=== PATIENT | male | born 1940 | race Caucasian/White ===

== ENCOUNTER 2017-11-07 14:05 | Observation (INO) ==
[2017-11-07] MEDS ORDERED: DOCUSATE SODIUM 100 MG CAPSULE PO PRN (14:38)
[2017-11-07] MEDS ORDERED: ZALEPLON 5 MG CAPSULE PO PRN (14:38)
[2017-11-07] MEDS ORDERED: ACETAMINOPHEN 325 MG TABLET PO PRN (14:38)
[2017-11-07] MEDS ORDERED: MAGNESIUM SULF RIDER 2 GM in PREMIX 1 EACH IV PRN (14:38)
[2017-11-07] MEDS ORDERED: MAGNESIUM SULF RIDER 4 GM in PREMIX 1 EACH IV PRN (14:38)
[2017-11-07] MEDS ORDERED: ONDANSETRON 4 MG/2 ML VIAL IV PRN (14:38)
[2017-11-07] MEDS ORDERED: MECLIZINE 25 MG TABLET PO PRN (14:42)
[2017-11-07] MEDS ORDERED: NITROGLYCERIN SL 0.4 MG TABLET SL PRN (14:44)
[2017-11-07] MEDS ORDERED: LOPERAMIDE 2 MG CAPSULE PO PRN (14:50)
[2017-11-07] MEDS ORDERED: SIMVASTATIN 40 MG TABLET PO SCH (21:00)
[2017-11-07] MEDS: ENOXAPARIN 30 MG/0.3 ML SYRINGE SUBCUT SCH (21:45)
[2017-11-07] MEDS: CALCIUM (CARBONATE)/VITAMIN D 600 MG-400 UNIT TABLET PO SCH (21:45)
[2017-11-07] MEDS: ATORVASTATIN 40 MG TABLET PO SCH (21:45)
[2017-11-07] MEDS: METOPROLOL TARTRATE 25 MG TABLET PO SCH (21:45)
[2017-11-07] MEDS: FLUTICASONE 50 MCG NASAL SPRAY 16 GM BOTTLE BOTH NARES SCH (21:45)
[2017-11-07] MEDS: busPIRone 5 MG TABLET PO SCH (21:45)
[2017-11-08 05:22] LABS: Basophils % 0.2 % (0.0-0.8); Eosinophils % 0.2 % (0.00-10.9); Hematocrit 25.5 VOL% (42.0-52.0); Hemoglobin 8.6 GM/DL (14.0-18.0); Immature Granulocytes % 0.4 %; Immature Granulocytes Absolute 0.02 #; Lymphocytes # 1.8 10*3/uL (1.4-4.0); Lymphocytes % 34.4 % (21.2-54.2); Mean Corpuscular HGB Conc 33.7 GM/DL (32-36); Mean Corpuscular Hemoglobin 31 PG (27-34); Mean Corpuscular Volume 90.7 FL (87-102); Mean Platelet Volume 9.2 FL (9.6-12.0); Monocytes # 0.3 10*3/uL (0.11-0.8); Monocytes % 6.5 % (1.7-12.7); Neutrophils % 58.3 % (38.7-73.9); Platelet Count 208 T/CUMM (130-400); Red Blood Count 2.81 MC/CUMM (3.8-5.5); Red Cell Distribution Width 13.2 % (9.3-17.3); White Blood Count 5.1 T/CUMM (4-12)
[2017-11-08 05:46] LABS: Calcium 8.8 MG/DL (8.5-10.1); Osmolality,Calculated 290.3 MOS/KG (273-304); Potassium 4.5 MMOL/L (3.5-5.1)
[2017-11-08] MEDS: ESCITALOPRAM 10 MG TABLET PO SCH (09:06)
[2017-11-08] MEDS: PANTOPRAZOLE 40 MG TABLET PO SCH (09:06)
[2017-11-08] MEDS: DONEPEZIL 10 MG TABLET PO SCH (09:06)
[2017-11-08] MEDS: amLODIPine 10 MG TABLET PO SCH (09:06)
[2017-11-08] MEDS: CLOPIDOGREL 75 MG TABLET PO SCH (09:06)
[2017-11-08] MEDS: ASPIRIN EC 81 MG TABLET PO SCH (09:06)
[2017-11-08] MEDS: busPIRone 5 MG TABLET PO SCH ×2 (09:06→22:00)
[2017-11-08] MEDS: CALCIUM (CARBONATE)/VITAMIN D 600 MG-400 UNIT TABLET PO SCH ×2 (09:06→22:00)
[2017-11-08] MEDS: CETIRIZINE 10 MG TABLET PO SCH (09:06)
[2017-11-08] MEDS: METOPROLOL TARTRATE 25 MG TABLET PO SCH ×2 (09:06→22:00)
[2017-11-08] MEDS: FLUTICASONE 50 MCG NASAL SPRAY 16 GM BOTTLE BOTH NARES SCH ×2 (09:07→22:01)
[2017-11-08] MEDS ORDERED: MECLIZINE 25 MG TABLET PO PRN (14:30)
[2017-11-08] MEDS: ENOXAPARIN 30 MG/0.3 ML SYRINGE SUBCUT SCH (22:00)
[2017-11-08] MEDS: ATORVASTATIN 40 MG TABLET PO SCH (22:00)
[2017-11-09 05:03] LABS: Basophils % 0.4 % (0.0-0.8); Hematocrit 25.4 VOL% (42.0-52.0); Hemoglobin 8.4 GM/DL (14.0-18.0); Immature Granulocytes % 0.4 %; Immature Granulocytes Absolute 0.02 #; Lymphocytes # 2.1 10*3/uL (1.4-4.0); Lymphocytes % 42.3 % (21.2-54.2); Mean Corpuscular HGB Conc 33.1 GM/DL (32-36); Mean Corpuscular Hemoglobin 31 PG (27-34); Mean Corpuscular Volume 92.7 FL (87-102); Mean Platelet Volume 9.3 FL (9.6-12.0); Monocytes # 0.3 10*3/uL (0.11-0.8); Monocytes % 6.6 % (1.7-12.7); Neutrophils # 2.4 10*3/uL (1.4-7.4); Neutrophils % 50.3 % (38.7-73.9); Platelet Count 200 T/CUMM (130-400); Red Blood Count 2.74 MC/CUMM (3.8-5.5); Red Cell Distribution Width 13.2 % (9.3-17.3); White Blood Count 4.9 T/CUMM (4-12)
[2017-11-09 05:55] LABS: Calcium 8.5 MG/DL (8.5-10.1); Osmolality,Calculated 290.3 MOS/KG (273-304); Potassium 4.2 MMOL/L (3.5-5.1)
[2017-11-09] MEDS: CALCIUM (CARBONATE)/VITAMIN D 600 MG-400 UNIT TABLET PO SCH (09:08)
[2017-11-09] MEDS: busPIRone 5 MG TABLET PO SCH (09:09)
[2017-11-09] MEDS: amLODIPine 10 MG TABLET PO SCH (09:09)
[2017-11-09] MEDS: CETIRIZINE 10 MG TABLET PO SCH (09:09)
[2017-11-09] MEDS: CLOPIDOGREL 75 MG TABLET PO SCH (09:10)
[2017-11-09] MEDS: PANTOPRAZOLE 40 MG TABLET PO SCH (09:10)
[2017-11-09] MEDS: ESCITALOPRAM 10 MG TABLET PO SCH (09:10)
[2017-11-09] MEDS: METOPROLOL TARTRATE 25 MG TABLET PO SCH (09:11)
[2017-11-09] MEDS: FLUTICASONE 50 MCG NASAL SPRAY 16 GM BOTTLE BOTH NARES SCH (09:11)
[2017-11-09] MEDS: ASPIRIN EC 81 MG TABLET PO SCH (09:14)
[2017-11-09] MEDS: DONEPEZIL 10 MG TABLET PO SCH (09:18)
[2017-11-09 12:37] VITALS: BP 123/58
== END 2017-11-09 13:05 ==
LOC: EDBD → EDUNIT# → N.ED 14:05 → N.EDINP 14:05 → N.TELES 16:12
PROVIDERS: ADMIT Internal Medicine Cardiovascular Disease; ATTEND Internal Medicine Cardiovascular Disease

== ENCOUNTER 2018-01-10 00:35 | Inpatient (IN) ==
[2018-01-10] MEDS ORDERED: ONDANSETRON 4 MG/2 ML VIAL IV STA (01:00)
[2018-01-10] MEDS ORDERED: METOCLOPRAMIDE 10 MG/2 ML VIAL IV STA (01:00)
[2018-01-10] MEDS ORDERED: PANTOPRAZOLE 40 MG VIAL IV STA (01:00)
[2018-01-10] MEDS ORDERED: SODIUM CHLORIDE 0.9% 1,000 ML IV STA (01:00)
[2018-01-10 01:48] LABS: Basophils % 0.2 % (0.0-0.8); Eosinophils % 0.2 % (0.00-10.9); Hematocrit 23.1 VOL% (42.0-52.0); Hemoglobin 7.2 GM/DL (14.0-18.0); Immature Granulocytes % 0.4 %; Immature Granulocytes Absolute 0.02 #; Lymphocytes # 1.5 10*3/uL (1.4-4.0); Lymphocytes % 33.9 % (21.2-54.2); Mean Corpuscular HGB Conc 31.2 GM/DL (32-36); Mean Corpuscular Hemoglobin 29 PG (27-34); Mean Platelet Volume 9.1 FL (9.6-12.0); Monocytes # 0.3 10*3/uL (0.11-0.8); Neutrophils # 2.6 10*3/uL (1.4-7.4); Neutrophils % 58.3 % (38.7-73.9); Platelet Count 186 T/CUMM (130-400); Red Blood Count 2.51 MC/CUMM (3.8-5.5); Red Cell Distribution Width 14.2 % (9.3-17.3); White Blood Count 4.5 T/CUMM (4-12)
[2018-01-10 01:59] LABS: PT Patient Result 10.7 SECS; Partial Thromboplastin Time 27.4 SECS (0-40)
[2018-01-10 02:08] LABS: Alanine Aminotransferase 15 U/L (16-61); Albumin 3.2 G/DL (3.4-5.0); Alkaline Phosphatase 86 U/L (45-117); Aspartate Amino Transferase 12 U/L (0-37); Bilirubin,Total < 0.39 MG/DL (0.2-1.0); Blood Urea Nitrogen 26 MG/DL (7-18); Calcium 8.2 MG/DL (8.5-10.1); Glucose 97 MG/DL (74-106); Osmolality,Calculated 290.8 MOS/KG (273-304); Potassium 3.8 MMOL/L (3.5-5.1); Sodium 144 MMOL/L (136-145); Total Protein 6.2 G/DL (6.4-8.3); Troponin I Only < 0.015 NG/ML (0.00-0.045)
[2018-01-10 04:31] LABS: Apearance,Urine CLEAR (Clear); Bilirubin,Urine Negative (Negative); Blood, Urine Negative (Negative); Glucose,Urine (UA) Negative (Negative); Ketones,Urine Negative (Negative); Mucus,Urine Occasional /LPF (Occasional); Nitrite,Urine Negative (Negative); Protein,Urine Negative; RBC,Urine <1 /HPF (0-4); Squamous Epithelial Cell,Urine Occasional /HPF (0-10); Urine Color Yellow (Yellow); Urine Specific Gravity 1.009 (1.001-1.035); Urine Urobilinogen < 2.0 EU/DL (0.2-1.0); WBC,Urine <1 /HPF (0-6)
[2018-01-10] MEDS ORDERED: ONDANSETRON 4 MG/2 ML VIAL IV PRN (05:40)
[2018-01-10] MEDS ORDERED: SODIUM CHLORIDE 0.9% 1,000 ML IV SCH (08:06)
[2018-01-10] MEDS ORDERED: NITROGLYCERIN SL 0.4 MG TABLET SL PRN (08:06)
[2018-01-10] MEDS ORDERED: SODIUM CHLORIDE 0.9% 1,000 ML IV PRN (08:06)
[2018-01-10] MEDS: ESCITALOPRAM 10 MG TABLET PO SCH (09:50)
[2018-01-10] MEDS: CLOPIDOGREL 75 MG TABLET PO SCH (09:50)
[2018-01-10] MEDS: METOPROLOL TARTRATE 25 MG TABLET PO SCH ×2 (09:50→21:23)
[2018-01-10] MEDS: PANTOPRAZOLE 40 MG VIAL IV SCH ×2 (09:51→21:23)
[2018-01-10] MEDS: ASPIRIN EC 81 MG TABLET PO SCH (09:59)
[2018-01-10 16:01] LABS: Hematocrit 25.6 VOL% (42.0-52.0); Hemoglobin 8.1 GM/DL (14.0-18.0)
[2018-01-10] MEDS: DONEPEZIL 10 MG TABLET PO SCH (21:22)
[2018-01-10] MEDS: busPIRone 5 MG TABLET PO SCH (21:23)
[2018-01-10] MEDS: ATORVASTATIN 40 MG TABLET PO SCH (21:23)
[2018-01-11 05:11] LABS: Basophils % 0.2 % (0.0-0.8); Eosinophils % 0.2 % (0.00-10.9); Hematocrit 24.1 VOL% (42.0-52.0); Hemoglobin 7.4 GM/DL (14.0-18.0); Immature Granulocytes % 0.4 %; Immature Granulocytes Absolute 0.02 #; Lymphocytes # 1.6 10*3/uL (1.4-4.0); Lymphocytes % 33.7 % (21.2-54.2); Mean Corpuscular HGB Conc 30.7 GM/DL (32-36); Mean Corpuscular Hemoglobin 29 PG (27-34); Mean Corpuscular Volume 93.1 FL (87-102); Mean Platelet Volume 9.4 FL (9.6-12.0); Monocytes # 0.4 10*3/uL (0.11-0.8); Monocytes % 7.6 % (1.7-12.7); Neutrophils # 2.8 10*3/uL (1.4-7.4); Neutrophils % 57.9 % (38.7-73.9); Platelet Count 167 T/CUMM (130-400); Red Blood Count 2.59 MC/CUMM (3.8-5.5); Red Cell Distribution Width 14.1 % (9.3-17.3); White Blood Count 4.8 T/CUMM (4-12)
[2018-01-11] MEDS ORDERED: SODIUM CHLORIDE 0.9% 1,000 ML IV PRN ×2 (05:29→07:08)
[2018-01-11 05:45] LABS: Calcium 8.1 MG/DL (8.5-10.1); Osmolality,Calculated 292.6 MOS/KG (273-304); Potassium 4.1 MMOL/L (3.5-5.1)
[2018-01-11] MEDS: PANTOPRAZOLE 40 MG VIAL IV SCH ×2 (08:51→20:40)
[2018-01-11] MEDS ORDERED: PROPOFOL 200 MG/20 ML VIAL IV ONE (09:00)
[2018-01-11] MEDS ORDERED: LIDOCAINE 100 MG/5 ML SYRINGE ONE (09:00)
[2018-01-11] MEDS ORDERED: ONDANSETRON 4 MG/2 ML VIAL ONE (11:09)
[2018-01-11] MEDS: ASPIRIN EC 81 MG TABLET PO SCH (13:11)
[2018-01-11] MEDS: METOPROLOL TARTRATE 25 MG TABLET PO SCH ×2 (13:11→20:40)
[2018-01-11] MEDS: MULTIVITAMIN (BEROCCA) TABLET PO SCH (13:11)
[2018-01-11] MEDS: ESCITALOPRAM 10 MG TABLET PO SCH (13:12)
[2018-01-11] MEDS: CLOPIDOGREL 75 MG TABLET PO SCH (13:12)
[2018-01-11] MEDS: CALCIUM (CARBONATE)/VITAMIN D 600 MG-400 UNIT TABLET PO SCH (13:12)
[2018-01-11] MEDS: busPIRone 5 MG TABLET PO SCH ×2 (13:12→20:40)
[2018-01-11] MEDS: MULTIVITAMIN (CENTRUM) TABLET PO SCH (13:12)
[2018-01-11] MEDS: CETIRIZINE 10 MG TABLET PO SCH (13:12)
[2018-01-11] MEDS: NITROGLYCERIN 0.2 MG/HR PATCH TRANSDERM SCH (16:01)
[2018-01-11] MEDS ORDERED: LACTULOSE 20 GM/30 ML UDCUP PO ONE (17:16)
[2018-01-11 19:56] LABS: Hematocrit 30.9 VOL% (42.0-52.0); Hemoglobin 9.7 GM/DL (14.0-18.0)
[2018-01-11] MEDS: DONEPEZIL 10 MG TABLET PO SCH (20:40)
[2018-01-11] MEDS: ATORVASTATIN 40 MG TABLET PO SCH (20:40)
[2018-01-11] MEDS ORDERED: DOCUSATE SODIUM 100 MG CAPSULE PO SCH (21:00)
[2018-01-12 04:51] LABS: Basophils % 0.1 % (0.0-0.8); Eosinophils % 0.1 % (0.00-10.9); Hematocrit 30.4 VOL% (42.0-52.0); Hemoglobin 9.5 GM/DL (14.0-18.0); Immature Granulocytes % 0.6 %; Immature Granulocytes Absolute 0.04 #; Lymphocytes # 1.2 10*3/uL (1.4-4.0); Lymphocytes % 17.1 % (21.2-54.2); Mean Corpuscular HGB Conc 31.3 GM/DL (32-36); Mean Corpuscular Hemoglobin 29 PG (27-34); Mean Corpuscular Volume 91.6 FL (87-102); Mean Platelet Volume 9.2 FL (9.6-12.0); Monocytes # 0.4 10*3/uL (0.11-0.8); Monocytes % 5.6 % (1.7-12.7); Neutrophils # 5.2 10*3/uL (1.4-7.4); Neutrophils % 76.5 % (38.7-73.9); Platelet Count 150 T/CUMM (130-400); Red Blood Count 3.32 MC/CUMM (3.8-5.5); Red Cell Distribution Width 13.8 % (9.3-17.3); White Blood Count 6.8 T/CUMM (4-12)
[2018-01-12] MEDS: PANTOPRAZOLE 40 MG VIAL IV SCH (08:17)
[2018-01-12] MEDS: NITROGLYCERIN 0.2 MG/HR PATCH TRANSDERM SCH (08:17)
[2018-01-12] MEDS: busPIRone 5 MG TABLET PO SCH (08:18)
[2018-01-12] MEDS: CLOPIDOGREL 75 MG TABLET PO SCH (08:18)
[2018-01-12] MEDS: ESCITALOPRAM 10 MG TABLET PO SCH (08:18)
[2018-01-12] MEDS: METOPROLOL TARTRATE 25 MG TABLET PO SCH (08:18)
[2018-01-12] MEDS: MULTIVITAMIN (BEROCCA) TABLET PO SCH (08:18)
[2018-01-12] MEDS: MULTIVITAMIN (CENTRUM) TABLET PO SCH (08:18)
[2018-01-12] MEDS: CETIRIZINE 10 MG TABLET PO SCH (08:18)
[2018-01-12] MEDS: ASPIRIN EC 81 MG TABLET PO SCH (08:19)
[2018-01-12] MEDS: CALCIUM (CARBONATE)/VITAMIN D 600 MG-400 UNIT TABLET PO SCH (08:19)
[2018-01-12 11:56] VITALS: BP 130/58
== END 2018-01-12 14:56 | DRG 378 ==
LOC: N.ED 00:35 → N.EDINP 04:40 → SUATTDRO 04:40 → N.TELES 06:28
PROVIDERS: ADMIT Internal Medicine Cardiovascular Disease; ATTEND Family Medicine

== ENCOUNTER 2018-02-22 00:51 | Inpatient (IN) ==
[2018-02-22] MEDS ORDERED: PANTOPRAZOLE 40 MG VIAL IV STA (01:10)
[2018-02-22] MEDS ORDERED: ONDANSETRON 4 MG/2 ML VIAL IV STA (01:10)
[2018-02-22] MEDS ORDERED: ALUM/MAG/SIMETH/LIDO VISC 1:1 30 ML BOTTLE PO STA (01:10)
[2018-02-22 01:56] LABS: Basophils % 0.4 % (0.0-0.8); Eosinophils % 0.4 % (0.00-10.9); Hematocrit 24.9 VOL% (42.0-52.0); Hemoglobin 7.6 GM/DL (14.0-18.0); Immature Granulocytes % 0.4 %; Immature Granulocytes Absolute 0.02 #; Lymphocytes # 1.9 10*3/uL (1.4-4.0); Lymphocytes % 33.3 % (21.2-54.2); Mean Corpuscular HGB Conc 30.5 GM/DL (32-36); Mean Corpuscular Hemoglobin 29 PG (27-34); Mean Corpuscular Volume 94.3 FL (87-102); Mean Platelet Volume 9.3 FL (9.6-12.0); Monocytes # 0.4 10*3/uL (0.11-0.8); Monocytes % 6.8 % (1.7-12.7); Neutrophils # 3.3 10*3/uL (1.4-7.4); Neutrophils % 58.7 % (38.7-73.9); Platelet Count 228 T/CUMM (130-400); Red Blood Count 2.64 MC/CUMM (3.8-5.5); Red Cell Distribution Width 15.5 % (9.3-17.3); White Blood Count 5.6 T/CUMM (4-12)
[2018-02-22 02:13] LABS: Alanine Aminotransferase 19 U/L (16-61); Albumin 3.5 G/DL (3.4-5.0); Alkaline Phosphatase 90 U/L (45-117); Amylase 72 U/L (25-115); Aspartate Amino Transferase 15 U/L (0-37); Bilirubin,Total < 0.39 MG/DL (0.2-1.0); Blood Urea Nitrogen 32 MG/DL (7-18); Calcium 8.7 MG/DL (8.5-10.1); Glucose 106 MG/DL (74-106); Potassium 4.1 MMOL/L (3.5-5.1); Sodium 143 MMOL/L (136-145); Total Protein 6.8 G/DL (6.4-8.3)
[2018-02-22 02:33] LABS: Apearance,Urine CLEAR (Clear); Bilirubin,Urine Negative (Negative); Blood, Urine Negative (Negative); Glucose,Urine (UA) Negative (Negative); Hyaline Casts,Urine 3 /LPF (0-3); Ketones,Urine Negative (Negative); Mucus,Urine Occasional /LPF (Occasional); Nitrite,Urine Negative (Negative); Protein,Urine Negative; RBC,Urine 1 /HPF (0-4); Urine Color Yellow (Yellow); Urine Specific Gravity 1.012 (1.001-1.035); Urine Urobilinogen < 2.0 EU/DL (0.2-1.0); WBC,Urine 1 /HPF (0-6)
[2018-02-22 03:49] LABS: PT Patient Result 10.3 SECS
[2018-02-22] MEDS ORDERED: SODIUM CHLORIDE 0.9% 1,000 ML IV PRN ×2 (05:44→15:39)
[2018-02-22] MEDS ORDERED: PROMETHAZINE 25 MG/1 ML VIAL IM PRN (05:44)
[2018-02-22] MEDS ORDERED: MORPHINE 4 MG/1 ML VIAL IV PRN (05:44)
[2018-02-22] MEDS ORDERED: ONDANSETRON 4 MG/2 ML VIAL IV PRN (05:44)
[2018-02-22] MEDS: SODIUM CHLORIDE 0.9% 1,000 ML IV SCH ×2 (06:44→23:53)
[2018-02-22 06:46] LABS: Risk Ratio 1.18; VLDL CHOLESTEROL 7.4 MG/DL
[2018-02-22] MEDS: PANTOPRAZOLE 40 MG VIAL IV SCH ×2 (11:00→20:51)
[2018-02-22 11:35] LABS: % Iron Saturation 5.9 % (18-50); Ferritin 14.4 ng/ml (26-388)
[2018-02-22 15:12] LABS: Hematocrit 23.2 VOL% (42.0-52.0); Hemoglobin 7.2 GM/DL (14.0-18.0)
[2018-02-22] MEDS ORDERED: MECLIZINE 25 MG TABLET PO PRN (15:12)
[2018-02-22] MEDS ORDERED: NITROGLYCERIN SL 0.4 MG TABLET SL PRN (15:12)
[2018-02-22] MEDS: busPIRone 5 MG TABLET PO SCH (20:51)
[2018-02-22] MEDS: DOCUSATE SODIUM 100 MG CAPSULE PO SCH (20:51)
[2018-02-22] MEDS: DONEPEZIL 10 MG TABLET PO SCH (20:51)
[2018-02-22] MEDS: ATORVASTATIN 40 MG TABLET PO SCH (20:51)
[2018-02-22] MEDS: METOPROLOL TARTRATE 25 MG TABLET PO SCH (23:53)
[2018-02-23 06:39] LABS: Hematocrit 30.6 VOL% (42.0-52.0)
[2018-02-23 06:52] LABS: Hemoglobin 9.8 GM/DL (14.0-18.0)
[2018-02-23 07:04] LABS: Calcium 8.3 MG/DL (8.5-10.1); Osmolality,Calculated 288.8 MOS/KG (273-304); Potassium 4.2 MMOL/L (3.5-5.1)
[2018-02-23] MEDS: METOPROLOL TARTRATE 25 MG TABLET PO SCH ×2 (08:14→20:45)
[2018-02-23] MEDS: busPIRone 5 MG TABLET PO SCH ×2 (08:14→20:45)
[2018-02-23] MEDS: PANTOPRAZOLE 40 MG VIAL IV SCH ×2 (08:14→20:44)
[2018-02-23] MEDS: amLODIPine 10 MG TABLET PO SCH (08:14)
[2018-02-23] MEDS: NITROGLYCERIN 0.4 MG/HR PATCH TRANSDERM SCH (08:15)
[2018-02-23] MEDS: SODIUM CHLORIDE 0.9% 1,000 ML IV SCH (15:09)
[2018-02-23 18:20] LABS: Hematocrit 32.3 VOL% (42.0-52.0); Hemoglobin 10.1 GM/DL (14.0-18.0)
[2018-02-23] MEDS: DOCUSATE SODIUM 100 MG CAPSULE PO SCH (20:44)
[2018-02-23] MEDS: ATORVASTATIN 40 MG TABLET PO SCH (20:44)
[2018-02-23] MEDS: DONEPEZIL 10 MG TABLET PO SCH (20:45)
[2018-02-23 21:15] LABS: Hematocrit 32.1 VOL% (42.0-52.0); Hemoglobin 9.9 GM/DL (14.0-18.0)
[2018-02-24 06:49] LABS: Basophils % 0.2 % (0.0-0.8); Eosinophils % 0.2 % (0.00-10.9); Hematocrit 33.2 VOL% (42.0-52.0); Hemoglobin 10.1 GM/DL (14.0-18.0); Immature Granulocytes % 0.2 %; Immature Granulocytes Absolute 0.01 #; Lymphocytes # 1.5 10*3/uL (1.4-4.0); Lymphocytes % 33.1 % (21.2-54.2); Mean Corpuscular HGB Conc 30.4 GM/DL (32-36); Mean Corpuscular Hemoglobin 29 PG (27-34); Mean Corpuscular Volume 94.3 FL (87-102); Mean Platelet Volume 9.3 FL (9.6-12.0); Monocytes # 0.5 10*3/uL (0.11-0.8); Monocytes % 9.7 % (1.7-12.7); Neutrophils # 2.6 10*3/uL (1.4-7.4); Neutrophils % 56.6 % (38.7-73.9); Platelet Count 153 T/CUMM (130-400); Red Blood Count 3.52 MC/CUMM (3.8-5.5); Red Cell Distribution Width 14.1 % (9.3-17.3); White Blood Count 4.7 T/CUMM (4-12)
[2018-02-24 07:14] LABS: Calcium 8.6 MG/DL (8.5-10.1); Osmolality,Calculated 289.8 MOS/KG (273-304); Potassium 4.3 MMOL/L (3.5-5.1)
[2018-02-24] MEDS: amLODIPine 10 MG TABLET PO SCH (08:51)
[2018-02-24] MEDS: busPIRone 5 MG TABLET PO SCH ×2 (08:51→22:11)
[2018-02-24] MEDS: ASPIRIN EC 81 MG TABLET PO SCH (08:51)
[2018-02-24] MEDS: PANTOPRAZOLE 40 MG VIAL IV SCH ×2 (08:57→22:11)
[2018-02-24] MEDS: METOPROLOL TARTRATE 25 MG TABLET PO SCH ×2 (09:01→22:12)
[2018-02-24] MEDS: NITROGLYCERIN 0.4 MG/HR PATCH TRANSDERM SCH (09:01)
[2018-02-24] MEDS: LISINOPRIL 10 MG TABLET PO SCH (09:41)
[2018-02-24] MEDS: POLYETHYLENE GLYCOL POWDER 17 GM PACK PO SCH (09:41)
[2018-02-24] MEDS ORDERED: MAGNESIUM CITRATE 300 ML BOTTLE PO ONE ×2 (14:07→15:00)
[2018-02-24] MEDS ORDERED: POLYETHYLENE GLYCOL POWDER 255 GM BOTTLE PO ONE (18:00)
[2018-02-24] MEDS: DOCUSATE SODIUM 100 MG CAPSULE PO SCH (22:11)
[2018-02-24] MEDS: ATORVASTATIN 40 MG TABLET PO SCH (22:11)
[2018-02-24] MEDS: DONEPEZIL 10 MG TABLET PO SCH (22:12)
[2018-02-25 05:58] LABS: Basophils % 0.2 % (0.0-0.8); Eosinophils % 0.2 % (0.00-10.9); Hemoglobin 10.4 GM/DL (14.0-18.0); Immature Granulocytes % 0.2 %; Immature Granulocytes Absolute 0.01 #; Lymphocytes # 1.4 10*3/uL (1.4-4.0); Lymphocytes % 29.8 % (21.2-54.2); Mean Corpuscular HGB Conc 31.5 GM/DL (32-36); Mean Corpuscular Hemoglobin 29 PG (27-34); Mean Corpuscular Volume 90.7 FL (87-102); Mean Platelet Volume 9.2 FL (9.6-12.0); Monocytes # 0.3 10*3/uL (0.11-0.8); Monocytes % 7.1 % (1.7-12.7); Neutrophils % 62.5 % (38.7-73.9); Platelet Count 165 T/CUMM (130-400); Red Blood Count 3.64 MC/CUMM (3.8-5.5); Red Cell Distribution Width 13.9 % (9.3-17.3); White Blood Count 4.8 T/CUMM (4-12)
[2018-02-25 06:30] LABS: Calcium 8.8 MG/DL (8.5-10.1); Osmolality,Calculated 285.1 MOS/KG (273-304); Potassium 3.9 MMOL/L (3.5-5.1)
[2018-02-25] MEDS: METOPROLOL TARTRATE 25 MG TABLET PO SCH ×2 (08:15→21:28)
[2018-02-25] MEDS: NITROGLYCERIN 0.4 MG/HR PATCH TRANSDERM SCH (08:15)
[2018-02-25] MEDS: amLODIPine 10 MG TABLET PO SCH (08:15)
[2018-02-25] MEDS: busPIRone 5 MG TABLET PO SCH ×2 (08:15→21:28)
[2018-02-25] MEDS: LISINOPRIL 10 MG TABLET PO SCH (08:15)
[2018-02-25] MEDS: POLYETHYLENE GLYCOL POWDER 17 GM PACK PO SCH (08:16)
[2018-02-25] MEDS: PANTOPRAZOLE 40 MG VIAL IV SCH ×2 (08:16→21:28)
[2018-02-25] MEDS: ASPIRIN EC 81 MG TABLET PO SCH (08:16)
[2018-02-25] MEDS ORDERED: MAGNESIUM CITRATE 300 ML BOTTLE PO ONE (15:00)
[2018-02-25] MEDS ORDERED: POLYETHYLENE GLYCOL POWDER 255 GM BOTTLE PO ONE (18:00)
[2018-02-25] MEDS: ATORVASTATIN 40 MG TABLET PO SCH (21:28)
[2018-02-25] MEDS: DOCUSATE SODIUM 100 MG CAPSULE PO SCH (21:28)
[2018-02-25] MEDS: DONEPEZIL 10 MG TABLET PO SCH (21:28)
[2018-02-26 07:21] LABS: Eosinophils % 0.2 % (0.00-10.9); Hematocrit 31.5 VOL% (42.0-52.0); Hemoglobin 10.1 GM/DL (14.0-18.0); Immature Granulocytes % 0.2 %; Immature Granulocytes Absolute 0.01 #; Lymphocytes # 1.4 10*3/uL (1.4-4.0); Lymphocytes % 31.7 % (21.2-54.2); Mean Corpuscular HGB Conc 32.1 GM/DL (32-36); Mean Corpuscular Hemoglobin 28 PG (27-34); Mean Platelet Volume 9.3 FL (9.6-12.0); Monocytes # 0.4 10*3/uL (0.11-0.8); Neutrophils # 2.6 10*3/uL (1.4-7.4); Neutrophils % 59.9 % (38.7-73.9); Platelet Count 173 T/CUMM (130-400); Red Blood Count 3.58 MC/CUMM (3.8-5.5); White Blood Count 4.4 T/CUMM (4-12)
[2018-02-26 07:48] LABS: Calcium 9.1 MG/DL (8.5-10.1); Osmolality,Calculated 281.3 MOS/KG (273-304); Potassium 3.8 MMOL/L (3.5-5.1)
[2018-02-26] MEDS: PANTOPRAZOLE 40 MG VIAL IV SCH ×2 (10:40→20:01)
[2018-02-26] MEDS: amLODIPine 10 MG TABLET PO SCH (10:41)
[2018-02-26] MEDS: busPIRone 5 MG TABLET PO SCH ×2 (10:41→20:01)
[2018-02-26] MEDS: LISINOPRIL 20 MG TABLET PO SCH (10:41)
[2018-02-26] MEDS: METOPROLOL TARTRATE 25 MG TABLET PO SCH (10:42)
[2018-02-26] MEDS: NITROGLYCERIN 0.4 MG/HR PATCH TRANSDERM SCH (10:46)
[2018-02-26] MEDS: POLYETHYLENE GLYCOL POWDER 17 GM PACK PO SCH (10:46)
[2018-02-26] MEDS: ASPIRIN EC 81 MG TABLET PO SCH (10:47)
[2018-02-26] MEDS ORDERED: BISACODYL 5 MG TABLET PO ONE (12:00)
[2018-02-26] MEDS: DONEPEZIL 10 MG TABLET PO SCH (20:01)
[2018-02-26] MEDS: ATORVASTATIN 40 MG TABLET PO SCH (20:01)
[2018-02-26] MEDS: DOCUSATE SODIUM 100 MG CAPSULE PO SCH (20:01)
[2018-02-27] MEDS: METOPROLOL TARTRATE 25 MG TABLET PO SCH ×3 (03:00→20:38)
[2018-02-27 06:24] LABS: Basophils % 0.2 % (0.0-0.8); Eosinophils % 0.2 % (0.00-10.9); Hematocrit 32.1 VOL% (42.0-52.0); Hemoglobin 10.6 GM/DL (14.0-18.0); Immature Granulocytes % 0.2 %; Immature Granulocytes Absolute 0.01 #; Lymphocytes # 1.6 10*3/uL (1.4-4.0); Lymphocytes % 36.6 % (21.2-54.2); Mean Corpuscular Hemoglobin 29 PG (27-34); Mean Corpuscular Volume 88.2 FL (87-102); Mean Platelet Volume 9.4 FL (9.6-12.0); Monocytes # 0.4 10*3/uL (0.11-0.8); Monocytes % 9.3 % (1.7-12.7); Neutrophils # 2.3 10*3/uL (1.4-7.4); Neutrophils % 53.5 % (38.7-73.9); Platelet Count 177 T/CUMM (130-400); Red Blood Count 3.64 MC/CUMM (3.8-5.5); Red Cell Distribution Width 14.1 % (9.3-17.3); White Blood Count 4.3 T/CUMM (4-12)
[2018-02-27 06:57] LABS: Calcium 8.8 MG/DL (8.5-10.1); Osmolality,Calculated 280.3 MOS/KG (273-304); Potassium 3.6 MMOL/L (3.5-5.1)
[2018-02-27] MEDS ORDERED: ETOMIDATE 20 MG/10 ML VIAL IV ONE (10:00)
[2018-02-27] MEDS ORDERED: LIDOCAINE 2% 5 ML VIAL ONE (10:00)
[2018-02-27] MEDS ORDERED: PROPOFOL 200 MG/20 ML VIAL IV ONE (10:00)
[2018-02-27] MEDS: ASPIRIN EC 81 MG TABLET PO SCH (13:04)
[2018-02-27] MEDS: LISINOPRIL 20 MG TABLET PO SCH (13:04)
[2018-02-27] MEDS: NITROGLYCERIN 0.4 MG/HR PATCH TRANSDERM SCH (13:05)
[2018-02-27] MEDS: PANTOPRAZOLE 40 MG VIAL IV SCH ×2 (13:05→20:38)
[2018-02-27] MEDS: POLYETHYLENE GLYCOL POWDER 17 GM PACK PO SCH (13:05)
[2018-02-27] MEDS: busPIRone 5 MG TABLET PO SCH ×2 (13:05→20:38)
[2018-02-27] MEDS: amLODIPine 10 MG TABLET PO SCH (13:05)
[2018-02-27] MEDS ORDERED: CLOPIDOGREL 300 MG TABLET PO ONE (13:11)
[2018-02-27] MEDS: DOCUSATE SODIUM 100 MG CAPSULE PO SCH (20:38)
[2018-02-27] MEDS: ATORVASTATIN 40 MG TABLET PO SCH (20:38)
[2018-02-27] MEDS: DONEPEZIL 10 MG TABLET PO SCH (20:38)
[2018-02-28 06:14] LABS: Basophils % 0.2 % (0.0-0.8); Eosinophils % 0.2 % (0.00-10.9); Hematocrit 32.7 VOL% (42.0-52.0); Hemoglobin 10.8 GM/DL (14.0-18.0); Immature Granulocytes % 0.2 %; Immature Granulocytes Absolute 0.01 #; Lymphocytes # 1.4 10*3/uL (1.4-4.0); Lymphocytes % 33.9 % (21.2-54.2); Mean Corpuscular Hemoglobin 29 PG (27-34); Mean Corpuscular Volume 87.7 FL (87-102); Mean Platelet Volume 9.1 FL (9.6-12.0); Monocytes # 0.4 10*3/uL (0.11-0.8); Monocytes % 9.2 % (1.7-12.7); Neutrophils # 2.3 10*3/uL (1.4-7.4); Neutrophils % 56.3 % (38.7-73.9); Platelet Count 161 T/CUMM (130-400); Red Blood Count 3.73 MC/CUMM (3.8-5.5)
[2018-02-28 06:31] LABS: Calcium 8.6 MG/DL (8.5-10.1); Osmolality,Calculated 284.1 MOS/KG (273-304); Potassium 3.3 MMOL/L (3.5-5.1)
[2018-02-28] MEDS: PANTOPRAZOLE 40 MG VIAL IV SCH ×2 (08:47→21:27)
[2018-02-28] MEDS: amLODIPine 10 MG TABLET PO SCH (08:48)
[2018-02-28] MEDS: busPIRone 5 MG TABLET PO SCH ×2 (08:48→21:26)
[2018-02-28] MEDS: METOPROLOL TARTRATE 25 MG TABLET PO SCH ×2 (08:48→21:26)
[2018-02-28] MEDS: CLOPIDOGREL 75 MG TABLET PO SCH (08:48)
[2018-02-28] MEDS: LISINOPRIL 20 MG TABLET PO SCH (08:48)
[2018-02-28] MEDS: ASPIRIN EC 81 MG TABLET PO SCH (08:48)
[2018-02-28] MEDS: NITROGLYCERIN 0.4 MG/HR PATCH TRANSDERM SCH (08:48)
[2018-02-28] MEDS: POLYETHYLENE GLYCOL POWDER 17 GM PACK PO SCH (08:49)
[2018-02-28] MEDS: POTASSIUM CHLORIDE 20 MEQ TABLET PO PRN ×3 (10:31→15:21)
[2018-02-28] MEDS: DOCUSATE SODIUM 100 MG CAPSULE PO SCH (21:26)
[2018-02-28] MEDS: ATORVASTATIN 40 MG TABLET PO SCH (21:26)
[2018-02-28] MEDS: DONEPEZIL 10 MG TABLET PO SCH (21:26)
[2018-03-01] MEDS: PANTOPRAZOLE 40 MG VIAL IV SCH (08:52)
[2018-03-01] MEDS: POLYETHYLENE GLYCOL POWDER 17 GM PACK PO SCH (08:52)
[2018-03-01] MEDS: NITROGLYCERIN 0.4 MG/HR PATCH TRANSDERM SCH (08:53)
[2018-03-01] MEDS: ASPIRIN EC 81 MG TABLET PO SCH (08:55)
[2018-03-01] MEDS: busPIRone 5 MG TABLET PO SCH (08:55)
[2018-03-01] MEDS: amLODIPine 10 MG TABLET PO SCH (08:55)
[2018-03-01] MEDS: LISINOPRIL 20 MG TABLET PO SCH (08:55)
[2018-03-01] MEDS: CLOPIDOGREL 75 MG TABLET PO SCH (08:55)
[2018-03-01] MEDS: METOPROLOL TARTRATE 25 MG TABLET PO SCH (08:55)
[2018-03-01 13:57] VITALS: BP 141/68
== END 2018-03-01 12:50 | DRG 378 ==
LOC: EDUNIT# → EDBD → N.ED 00:51 → SUATTDRO 03:31 → N.EDINP 03:31 → N.5E 05:03
PROVIDERS: ADMIT Internal Medicine; ATTEND Internal Medicine